=== PATIENT | female | born 1970 | race Asian ===

== ENCOUNTER 2016-07-20 20:16 | Emergency (ER) | payer SELFPAY ==
[~2016-07-20] VITALS: Ht 157.5 cm; Wt 59.0 kg
[2016-07-20 20:17] VITALS: BP 129/75
== END 2016-07-20 20:44 | disposition home or self-care (01) ==
LOC: ER 20:18
DX: Z04.1 Encounter for examination and observation following transport accident (principal)
CPT/HCPCS: 99283; A4606; Z7610